=== PATIENT | female | born 1995 | race Caucasian/White ===

== ENCOUNTER 2016-06-08 15:01 | Emergency (ER) | payer MEDICAID ==
[~2016-06-08] VITALS: Ht 172.7 cm; Wt 50.1 kg
[~2016-06-08 15:01] MED LIST: NORPTMEDS CO; TRAZ50TA2
[2016-06-08 15:20] VITALS: BP 102/62
[2016-06-08] MEDS ORDERED: KETOROLAC TROMETH 60MG/2ML VIAL IM ONE (19:00)
== END 2016-06-08 19:26 | disposition home or self-care (01) ==
LOC: ER 15:25
DX: G43.909 Migraine, unspecified, not intractable, without status migrainosus (principal); R53.1 Weakness; F12.10 Cannabis abuse, uncomplicated
CPT/HCPCS: 96372; 99283; J1885